=== PATIENT | female | born 2000 ===

== ENCOUNTER → 2019-07-24 | Outpatient (CLI) | payer OTHER ==
--- NOTE | 2019-07-25 08:49 | KCIC ---
EXAM: MRI LEFT WRIST DATE: 07/24/2019 5:00 PM CLINICAL HISTORY: LEFT WRIST GANGLION CYST COMPARISON: None. TECHNIQUE: Multiplanar, multisequence MR imaging of the left wrist was performed without IV contrast. FINDINGS: Fiducial marker seen at the dorsal aspect of the proximal carpal row denoting site of palpable abnormality. Subjacent to this fiducial marker is a multiloculated cystic structure measuring 1.5 x 0.9 x 2.2 cm (AP by transverse by craniocaudal) between the extensor tendon compartments 2 and 4. This multilobulated cystic structure has multiple possible origin points, small neck extends to the distal extensor compartment 4, the radiocarpal joint or from extensor compartment 3 as the extensor pollicis longus crosses over the extensor compartment 2. These are best delineated on the thin slice images. A small multiloculated cystic structure is seen at the palmar aspect of the wrist arising from the radiocarpal joint (series 5 image 19) measuring 6 x 3 mm. Otherwise the visualized flexor and extensor tendons are normal in signal and morphology, intact without tenosynovitis. The scapholunate and lunotriquetral ligaments are intact. The triangular fibrocartilage complex is intact. The TFC disc as well as the radial, foveal and styloid attachments are intact. The median nerve is normal in signal and caliber within the carpal tunnel. No space-occupying lesions or abnormal bowing of the flexor retinaculum.. The articular cartilage is grossly preserved. No evidence for fracture or osteonecrosis. No significant marrow edema. IMPRESSION: 1. Multiloculated cystic structure at the dorsal aspect of the radial wrist consistent with synovial cyst or ganglion, between extensor compartments 2 and 4. The possible origin may be from the dorsal radiocarpal joint, distal aspect of the extensor compartment 4, or from extensor compartment 3 as the extensor pollicis longus crosses over extensor compartment 2. Origin from the dorsal radiocarpal joint is favored. 2. Small synovial cyst or ganglion is seen at the palmar aspect of the radiocarpal joint measuring 6 mm. Electronically signed by: Scott Dawson MD (07/25/2019 8:46 AM) [id number]
== END | disposition home or self-care (01) ==
LOC: KCIC MRI 16:40
PROVIDERS: ATTEND Orthopaedic Surgery
DX: M67.432 Ganglion, left wrist (principal)
CPT/HCPCS: 73221